=== PATIENT | female | born 1935 | race Caucasian/White ===

== ENCOUNTER 2016-09-20 11:32 | Inpatient (IN) | payer MEDICARE, OTHER ==
[~2016-09-20] VITALS: Ht 154.9 cm; Wt 57.2 kg
[2016-09-20] MEDS ORDERED: SIMV10TA6 PO (11:58)
[2016-09-20] MEDS ORDERED: TAMS0.4C34 PO (11:58)
[2016-09-20] MEDS ORDERED: TRIA1CAP6 PO (11:59)
[2016-09-20] MEDS ORDERED: ESCI10TA PO (11:59)
[2016-09-20] MEDS ORDERED: PROCHLORPERAZINE EDISYLATE 10 MG/2 ML VIAL IV ONE (12:15)
[2016-09-20] MEDS ORDERED: PROCHLORPERAZINE EDISYLATE 10 MG/2 ML VIAL ONE (12:37)
--- NOTE | 2016-09-20 12:40 | NUR ---
PT IS IN ROOM #2A. DR MAURO EVALUATED THE PT.
[2016-09-20 12:42] LABS: BASOPHILS % (AUTO) 0.5 % (0.0-2.0); EOSINOPHILS % (AUTO) 0.7 % (0.0-7.0); HEMATOCRIT 39.5 % (37-47); HEMOGLOBIN 13.3 G/DL (12.0-16.0); LYMPHOCYTES # (AUTO) 1.7 K/UL (0.8-4.8); LYMPHOCYTES % (AUTO) 17.4 % (20.5-51.5); MEAN CORPUSCULAR HEMOGLOBIN 29.3 UUG (27.0-31.0); MEAN CORPUSCULAR HGB CONC 34 g/dL (32.0-37.0); MEAN CORPUSCULAR VOLUME 86.8 FL (81.0-99.0); MONOCYTES # (AUTO) 0.6 K/UL (0.1-1.30); NEUTROPHILS # (AUTO) 7.2 K/UL (1.8-8.9); NEUTROPHILS % (AUTO) 75.4 % (38.5-71.5); PLATELET COUNT (AUTO) 219 K/UL (150-450); RED BLOOD CELL COUNT(AUTO) 4.56 MIL/UL (4.2-5.4); WHITE BLOOD COUNT (AUTO) 9.6 K/UL (4.0-11.2)
[2016-09-20 12:43] LABS: EOSINOPHILS # (AUTO) 0.1 K/uL (0.0-0.7)
[2016-09-20 12:48] LABS: *BILIRUBIN,URIN NEGATIVE (NEGATIVE); *BLOOD, URINE Trace-intact (NEGATIVE); *CLARITY,URINE CLEAR (CLEAR); *COLOR,URINE YELLOW (YELLOW); *KETONES,URINE NEGATIVE (NEGATIVE); *PROTEIN,URINE NEGATIVE (NEGATIVE); *UROBILINOGEN,URINE 0.2 E.U./dl (NORMAL); LEUKOCYTE ESTERASE ,URINE TRACE (NEGATIVE); NITRITE, URINE NEGATIVE (NEGATIVE); PH,URINE 8.5 (5.0-8.0); UGLUCOSE NEGATIVE (NEGATIVE)
[2016-09-20 12:53] LABS: BACTERIA,URINE FEW /HPF (NONE SEEN); RBC,URINE 0-3 /HPF (0-3); SQUAMOUS EPITHELIAL CELL,UR FEW /HPF (NONE SEEN); WBC,URINE 0-3 /HPF (0-3)
[2016-09-20 12:59] LABS: ETHANOL < 3 MG/DL (0-0)
[2016-09-20 13:00] LABS: ALANINE AMINOTRANSFERASE 26 U/L (14-59); ALKALINE PHOSPHATASE 60 U/L (50-136); ASPARTATE AMINOTRANSFERASE 17 U/L (15-37); BILIRUBIN,DIRECT 0.1 mg/dL (0.0-0.2); BILIRUBIN,TOTAL 0.4 mg/dL (0.2-1.0); CARBON DIOXIDE 28 mmol/L (21-32); CHLORIDE 91 mmol/L (98-107); CREATININE 0.7 mg/dL (0.6-1.3); GLUCOSE 121 mg/dL (74-106); POTASSIUM 3.2 mmol/L (3.5-5.1); TOTAL PROTEIN, SERUM 7.5 g/dL (6.4-8.2); UREA NITROGEN, BLOOD 13 mg/dL (7-18)
[2016-09-20 13:04] LABS: ACETAMINOPHEN < 2.0 ug/mL (10-30)
[2016-09-20 13:11] LABS: THYROID STIMULATING HORMONE 0.725 mIU/mL (0.358-3.740)
[2016-09-20 13:12] LABS: *AMPHETAMINE, URINE NEGATIVE (NEGATIVE); *BARBITURATE, URINE NEGATIVE (NEGATIVE); *CANNABINOID, URINE NEGATIVE (NEGATIVE); *COCCAINE, URINE NEGATIVE (NEGATIVE); *OPIATE, URINE NEGATIVE (NEGATIVE); *PHENCYCLIDINE SCREEN,URINE NEGATIVE (NEGATIVE)
--- NOTE | 2016-09-20 14:36 | NUR ---
NAOMI AGUILERA PLCED PT ON VOLUNTARY HOLD, PT WANTED SALINE LOCK D/C'D WHICH WAS D/C'D INTACT. PT NOW AWAITING FOR BED AND TRANSFER.
[2016-09-20] MEDS ORDERED: LORAZEPAM 0.5 MG TABLET PO ONE (15:00)
[2016-09-20] MEDS ORDERED: LORAZEPAM 0.5 MG TABLET ONE (15:24)
--- NOTE | 2016-09-20 15:48 | NUR ---
REPORT WAS GIVEN TO RN MHU/MS. PT WAS TRANSFERED TO MHU/MS ROOM #208.
[2016-09-20 16:10] VITALS: BP 159/73
[2016-09-20] MEDS ORDERED: MAGNESIUM HYDROXIDE 30 ML LIQUID UDC PO PRN (17:00)
[2016-09-20] MEDS ORDERED: MAG HYDROX/AL HYDROX/SIMETH 30 ML LIQUID UDC PO PRN (17:00)
[2016-09-20] MEDS ORDERED: ACETAMINOPHEN 325 MG TABLET PO PRN (17:00)
--- NOTE | 2016-09-20 17:00 | NUR ---
PT WAS ADMITTED TO ROOM 208. 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 PT HAS 2 SONS WHO LIVE NEARBY PT STATES FEELING NAUSEATED FOR 1 YEAR AND DOES NOT KNOW WHY. PT STATES SHE HAS TAKEN EVERY MEDICATION KNOWN FOR NAUSEA BUT NOTHING HAS HELPED. PT ORIENTED TO ROOM, NO SIGNS OF ACUTE DISTRESS, CALL LIGHT IN REACH, WILL CONTINUE TO MONITOR
--- NOTE | 2016-09-20 19:10 | NUR ---
Bedside reporting with MUNA Owens. Received patient sound asleep during initial rounds with HOB elevated. Breathing even and unlabored. Safety mesaures and fall precaution maintained. Continue care as planned.
[2016-09-20 20:00] VITALS: BP 141/72
[2016-09-20] MEDS ORDERED: CLONIDINE HCL 0.1 MG TABLET PO PRN (20:30)
[2016-09-20] MEDS: SIMVASTATIN 10 MG TABLET PO SCH (20:56)
[2016-09-21 04:00] VITALS: BP 126/63
[2016-09-21] MEDS ORDERED: PEG15DRO2 OP (07:37)
[2016-09-21 07:56] VITALS: BP 126/63
[2016-09-21 08:01] VITALS: BP 138/64
--- NOTE | 2016-09-21 08:36 | NUR ---
PT AWAKE IN BED, IN NO ACUTE DISTRESS, TOLERATED BREAKFAST WELL. ALL SAFETY AND COMFORT MEASURES ATTENDED TO, CALL LIGHT IN REACH WILL CONTINUE TO MONITOR
[2016-09-21] MEDS ORDERED: ESCI10TA PO (08:42)
[2016-09-21] MEDS: TAMSULOSIN HCL 0.4 MG CAP.SR.24H PO SCH (09:00)
[2016-09-21] MEDS ORDERED: Medication Not On Formulary EA (Triamterene/Hydrochlorothiazid (Triamterene-Hctz 37.5-25 PO SCH (09:00)
[2016-09-21] MEDS: TRIAMTERENE/HCTZ 75-50 MG TABLET PO SCH (09:29)
--- NOTE | 2016-09-21 09:55 | NUR ---
PT REQUESTING TO TAKE FLOMAX AT NIGHT, CALLED PHARMACY TO CHANGE DUE TIME, SAID OKAY, WILL FOLLOW THROUGH
[2016-09-21] MEDS: PSYLLIUM SEED PACKET PO SCH (11:30)
[2016-09-21] MEDS ORDERED: MINERAL OIL/PETROLAT OPHT OINT 3.5 GM TUBE RIGHTEYE PRN (11:30)
[2016-09-21 11:31] LABS: *BILIRUBIN,URIN NEGATIVE (NEGATIVE); *BLOOD, URINE Trace-intact (NEGATIVE); *CLARITY,URINE CLEAR (CLEAR); *COLOR,URINE STRAW (YELLOW); *KETONES,URINE NEGATIVE (NEGATIVE); *PROTEIN,URINE NEGATIVE (NEGATIVE); *UROBILINOGEN,URINE 0.2 E.U./dl (NORMAL); LEUKOCYTE ESTERASE ,URINE NEGATIVE (NEGATIVE); NITRITE, URINE NEGATIVE (NEGATIVE); PH,URINE 7.5 (5.0-8.0); UGLUCOSE NEGATIVE (NEGATIVE)
[2016-09-21 11:44] LABS: BACTERIA,URINE FEW /HPF (NONE SEEN); RBC,URINE 0-3 /HPF (0-3); SQUAMOUS EPITHELIAL CELL,UR FEW /HPF (NONE SEEN); WBC,URINE 0-3 /HPF (0-3)
[2016-09-21] MEDS: DOCUSATE SODIUM 100 MG CAPSULE PO SCH (11:46)
[2016-09-21] MEDS: POLYVINYL ALCOHOL OPHT DROPS 15 ML BOTTLE EACHEYE PRN (11:53)
[2016-09-21] MEDS: ESCITALOPRAM OXALATE 10 MG TABLET PO SCH (14:26)
[2016-09-21 16:06] VITALS: BP 132/65
--- NOTE | 2016-09-21 16:39 | NUR ---
Initial discharge instructions: The patient resides at home [[address] [place] [address]; ] independently however her son Bradley has been living with her more recently. The patient stated that she will be returning home upon discharge. SW will speak with the patient, family, and MD regarding most appropriate discharge plan. SS will form a safe and proper discharge.
--- NOTE | 2016-09-21 18:27 | NUR ---
PATIENT SITTING IN CHAIR, LOOKING OUT WINDOW. NO CHANGES NOTED THROUGHOUT SHIFT, ALL SAFETY AND COMFORT MEASURES MAINTAINED THROUGHOUT SHIFT, CALL LIGHT IN REACH
[2016-09-21] MEDS: SIMVASTATIN 10 MG TABLET PO SCH (21:13)
[2016-09-22 05:00] VITALS: BP 143/59
[2016-09-22] MEDS ORDERED: ONDANSETRON ODT 4 MG TAB.RAPDIS SL ONE (05:00)
--- NOTE | 2016-09-22 05:00 | NUR ---
CALLED MD COUNTRY SALES MANAGER TO NOTIFY PT C/O NAUSEA AND REGARDING ABNORMAL POTASSIUM AND SODIUM LEVEL RESULTS ON 09/20/16 12:35PM. VERBAL ORDERS FROM STORMY LAUREN TAKEN AND CARRIED OUT. PROVIDED ICE CHIPS AND SODA CRACKERS TO PT. PT IS IN NO DISTRESS. WILL CONTINUE TO MONITOR.
[2016-09-22] MEDS ORDERED: ONDANSETRON ODT 4 MG TAB.RAPDIS ONE (05:17)
--- NOTE | 2016-09-22 06:17 | NUR ---
PT SLEPT INTERMITTENTLY, IN NO ACUTE DISTRESS. PT IS COOPERATIVE. FREQUENT VISUAL CHECKS DONE, CALL LIGHT WITHIN REACH, BED ALARM ON. WILL CONTINUE TO MONITOR.
[2016-09-22 06:43] LABS: BASOPHILS % (AUTO) 0.5 % (0.0-2.0); EOSINOPHILS # (AUTO) 0.2 K/uL (0.0-0.7); EOSINOPHILS % (AUTO) 3.5 % (0.0-7.0); HEMOGLOBIN 12.8 G/DL (12.0-16.0); LYMPHOCYTES # (AUTO) 2.3 K/UL (0.8-4.8); MEAN CORPUSCULAR HEMOGLOBIN 29.1 UUG (27.0-31.0); MEAN CORPUSCULAR HGB CONC 34 g/dL (32.0-37.0); MEAN CORPUSCULAR VOLUME 86.4 FL (81.0-99.0); MONOCYTES # (AUTO) 0.7 K/UL (0.1-1.30); MONOCYTES % (AUTO) 10.8 % (0.0-11.0); NEUTROPHILS # (AUTO) 3.1 K/UL (1.8-8.9); NEUTROPHILS % (AUTO) 49.2 % (38.5-71.5); PLATELET COUNT (AUTO) 216 K/UL (150-450); WHITE BLOOD COUNT (AUTO) 6.3 K/UL (4.0-11.2)
[2016-09-22 07:52] LABS: ALANINE AMINOTRANSFERASE 22 U/L (14-59); ALKALINE PHOSPHATASE 52 U/L (50-136); ASPARTATE AMINOTRANSFERASE 18 U/L (15-37); BILIRUBIN,TOTAL 0.5 mg/dL (0.2-1.0); CARBON DIOXIDE 29 mmol/L (21-32); CHLORIDE 93 mmol/L (98-107); CHOLESTEROL 195 mg/dL (<200); CREATININE 0.7 mg/dL (0.6-1.3); GLUCOSE 95 mg/dL (74-106); HDL CHOLESTEROL 98 mg/dL (40-60); MAGNESIUM 2.1 mg/dL (1.8-2.4); PHOSPHOROUS 3.1 mg/dL (2.5-4.9); TOTAL PROTEIN, SERUM 6.7 g/dL (6.4-8.2); TRIGLYCERIDES 34 MG/DL (30-150); UREA NITROGEN, BLOOD 14 mg/dL (7-18)
[2016-09-22] MEDS: ESCITALOPRAM OXALATE 10 MG TABLET PO SCH (08:28)
[2016-09-22] MEDS: CLONAZEPAM 0.5 MG TABLET PO PRN (08:28)
[2016-09-22] MEDS: PSYLLIUM SEED PACKET PO SCH (08:28)
[2016-09-22] MEDS: TRIAMTERENE/HCTZ 75-50 MG TABLET PO SCH (08:28)
[2016-09-22] MEDS: DOCUSATE SODIUM 100 MG CAPSULE PO SCH (08:28)
[2016-09-22] MEDS: TAMSULOSIN HCL 0.4 MG CAP.SR.24H PO SCH (08:28)
[2016-09-22] MEDS: POLYVINYL ALCOHOL OPHT DROPS 15 ML BOTTLE EACHEYE PRN (08:29)
[2016-09-22] MEDS ORDERED: POTASSIUM CHLORIDE 20 MEQ TAB.PRT.SR PO ONE (10:00)
[2016-09-22 11:10] VITALS: BP 137/64
[2016-09-22] MEDS: FAMOTIDINE 20 MG TABLET PO SCH (12:00)
--- NOTE | 2016-09-22 13:24 | NUR ---
Called MD Ca's office for psych ff up. Aviva BRAID CUTTER informed pt wants to change full liquid BRAID CUTTER advised not to change her diet instead put a diet consult.
[2016-09-22 15:07] VITALS: BP 141/63
[2016-09-22 20:00] VITALS: BP 136/65
[2016-09-22] MEDS: ONDANSETRON HCL 4 MG TABLET PO PRN (21:27)
[2016-09-22] MEDS: SIMVASTATIN 10 MG TABLET PO SCH (21:27)
[2016-09-22] MEDS: TEMAZEPAM 7.5 MG CAPSULE PO PRN (23:41)
[2016-09-23 06:27] VITALS: BP 134/61
--- NOTE | 2016-09-23 06:30 | NUR ---
PATIENT SLEPT WELL, IN NO ACUTE DISTRESS. NO SIGNIFICANT CHANGE OF CONDITION THROUGHOUT THE SHIFT. CALL LIGHT WITHIN REACH, BED ALARM ON. WILL CONTINUE TO MONITOR.
[2016-09-23 07:17] LABS: CARBON DIOXIDE 30 mmol/L (21-32); CHLORIDE 89 mmol/L (98-107); CREATININE 0.7 mg/dL (0.6-1.3); GLUCOSE 107 mg/dL (74-106); POTASSIUM 3.5 mmol/L (3.5-5.1); UREA NITROGEN, BLOOD 11 mg/dL (7-18)
[2016-09-23] MEDS: TAMSULOSIN HCL 0.4 MG CAP.SR.24H PO SCH (08:31)
[2016-09-23] MEDS: ESCITALOPRAM OXALATE 10 MG TABLET PO SCH (08:31)
[2016-09-23] MEDS: FAMOTIDINE 20 MG TABLET PO SCH (08:32)
[2016-09-23] MEDS: DOCUSATE SODIUM 100 MG CAPSULE PO SCH (08:32)
[2016-09-23] MEDS: PSYLLIUM SEED PACKET PO SCH (08:32)
[2016-09-23] MEDS: TRIAMTERENE/HCTZ 75-50 MG TABLET PO SCH (08:32)
[2016-09-23] MEDS: POLYVINYL ALCOHOL OPHT DROPS 15 ML BOTTLE EACHEYE PRN (08:33)
--- NOTE | 2016-09-23 08:48 | NUR ---
PT AMBULATING HALLWAY AT THIS TIME WITH STUDENT NURSES, TOLERATED FULL LIQUID DIET WELL, DENIES NAUSEA AT THIS TIME. ALL DUE MEDICATIONS GIVEN. WILL CONTINUE TO MONITOR.
[2016-09-23 11:01] VITALS: BP 126/62
[2016-09-23] MEDS: ONDANSETRON HCL 4 MG TABLET PO PRN (12:16)
[2016-09-23 15:06] VITALS: BP 126/60
[2016-09-23] MEDS: LEVOFLOXACIN 500 MG TABLET PO SCH (15:19)
[2016-09-23 17:02] LABS: *CREATININE,URINE 18.4 mg/dL (30-125)
--- NOTE | 2016-09-23 18:20 | NUR ---
PT AWAKE SITTING IN CHAIR, NO CHANGES THROUGHOUT SHIFT, ALL SAFETY AND COMFORT MEASURES MAINTAINED THROUGHOUT SHIFT, CALL LIGHT IN REACH
--- NOTE | 2016-09-23 20:00 | NUR ---
PATIENT AWAKE,ALERT, DEPRESSED,ANXIOUS,COOPERATIVE,DENIES SUICIDAL IDEATION,COMPLIANT WITH MEDICATIONS AND CARE,STILL CONTINUE C/O CHRONIC NAUSEA AND POOR APPETITE, WANTS TO STAY ON FULL LIQUID DIET,AWARE OF FLUID RESTRICTION AND COOPERATIVE,ABLE TO AMBULATE ON HER OWN,STEADY GAIT.ALL NEEDS ATTENDED.
[2016-09-23 20:03] VITALS: BP 138/59
[2016-09-23] MEDS: PROCHLORPERAZINE MALEATE 10 MG TABLET PO PRN (20:33)
[2016-09-23] MEDS: SIMVASTATIN 10 MG TABLET PO SCH (20:33)
--- NOTE | 2016-09-24 04:57 | NUR ---
PATIENT SLEEP WELL 6-7 HRS/NITE , NO ACUTE CHANGE IN CONDITION,CLOSELY MONITOR.
[2016-09-24 05:11] VITALS: BP 132/55
[2016-09-24 05:53] LABS: BASOPHILS % (AUTO) 0.7 % (0.0-2.0); EOSINOPHILS # (AUTO) 0.2 K/uL (0.0-0.7); EOSINOPHILS % (AUTO) 2.8 % (0.0-7.0); HEMATOCRIT 38.1 % (37-47); LYMPHOCYTES # (AUTO) 2.1 K/UL (0.8-4.8); LYMPHOCYTES % (AUTO) 35.4 % (20.5-51.5); MEAN CORPUSCULAR HEMOGLOBIN 29.2 UUG (27.0-31.0); MEAN CORPUSCULAR HGB CONC 34 g/dL (32.0-37.0); MEAN CORPUSCULAR VOLUME 85.9 FL (81.0-99.0); MONOCYTES # (AUTO) 0.7 K/UL (0.1-1.30); MONOCYTES % (AUTO) 11.1 % (0.0-11.0); NEUTROPHILS # (AUTO) 3.1 K/UL (1.8-8.9); PLATELET COUNT (AUTO) 205 K/UL (150-450); RED BLOOD CELL COUNT(AUTO) 4.44 MIL/UL (4.2-5.4); WHITE BLOOD COUNT (AUTO) 6.1 K/UL (4.0-11.2)
[2016-09-24 06:07] LABS: ALANINE AMINOTRANSFERASE 24 U/L (14-59); ALKALINE PHOSPHATASE 56 U/L (50-136); ASPARTATE AMINOTRANSFERASE 15 U/L (15-37); BILIRUBIN,TOTAL 0.3 mg/dL (0.2-1.0); CARBON DIOXIDE 34 mmol/L (21-32); CHLORIDE 88 mmol/L (98-107); CREATININE 0.7 mg/dL (0.6-1.3); GLUCOSE 98 mg/dL (74-106); PHOSPHOROUS 2.9 mg/dL (2.5-4.9); POTASSIUM 3.4 mmol/L (3.5-5.1); TOTAL PROTEIN, SERUM 6.6 g/dL (6.4-8.2); UREA NITROGEN, BLOOD 10 mg/dL (7-18)
[2016-09-24] MEDS: PROCHLORPERAZINE MALEATE 10 MG TABLET PO PRN ×2 (06:53→21:35)
[2016-09-24] MEDS: PSYLLIUM SEED PACKET PO SCH (08:37)
[2016-09-24] MEDS: FAMOTIDINE 20 MG TABLET PO SCH (08:38)
[2016-09-24] MEDS: DOCUSATE SODIUM 100 MG CAPSULE PO SCH (08:38)
[2016-09-24] MEDS: ESCITALOPRAM OXALATE 10 MG TABLET PO SCH (08:39)
[2016-09-24] MEDS: TRIAMTERENE/HCTZ 75-50 MG TABLET PO SCH (08:41)
[2016-09-24] MEDS: TAMSULOSIN HCL 0.4 MG CAP.SR.24H PO SCH (08:41)
[2016-09-24 11:48] VITALS: BP 145/60
[2016-09-24] MEDS ORDERED: POTASSIUM CHLORIDE 20 MEQ TAB.PRT.SR PO ONE (14:30)
[2016-09-24] MEDS: LEVOFLOXACIN 500 MG TABLET PO SCH (14:31)
[2016-09-24 16:16] VITALS: BP 141/72
--- NOTE | 2016-09-24 19:00 | NUR ---
PT IS LAYING IN BED COMFORTABLY. NO S/S OF RESPIRATORY DISTRESS NOTED. ALL SAFETY NEEDS ARE MET. NO PAIN NOTED.
[2016-09-24 19:50] VITALS: BP 136/61
[2016-09-24] MEDS: SIMVASTATIN 10 MG TABLET PO SCH (21:35)
[2016-09-25] MEDS: TEMAZEPAM 7.5 MG CAPSULE PO PRN ×2 (00:24→23:59)
[2016-09-25 05:00] VITALS: BP 129/61
--- NOTE | 2016-09-25 06:13 | NUR ---
SLEPT MOST OF THE NITE.NO BOWEL MOVEMENT YET.WARM PRUNE OFFERED.ON 800CC FLUID RESTRITION.
[2016-09-25 06:33] LABS: BASOPHILS % (AUTO) 0.6 % (0.0-2.0); EOSINOPHILS # (AUTO) 0.2 K/uL (0.0-0.7); EOSINOPHILS % (AUTO) 2.7 % (0.0-7.0); HEMOGLOBIN 13.3 G/DL (12.0-16.0); LYMPHOCYTES # (AUTO) 2.8 K/UL (0.8-4.8); LYMPHOCYTES % (AUTO) 42.6 % (20.5-51.5); MEAN CORPUSCULAR HEMOGLOBIN 29.1 UUG (27.0-31.0); MEAN CORPUSCULAR HGB CONC 34 g/dL (32.0-37.0); MEAN CORPUSCULAR VOLUME 85.7 FL (81.0-99.0); MONOCYTES # (AUTO) 0.8 K/UL (0.1-1.30); MONOCYTES % (AUTO) 12.6 % (0.0-11.0); NEUTROPHILS # (AUTO) 2.7 K/UL (1.8-8.9); NEUTROPHILS % (AUTO) 41.5 % (38.5-71.5); PLATELET COUNT (AUTO) 202 K/UL (150-450); RED BLOOD CELL COUNT(AUTO) 4.55 MIL/UL (4.2-5.4); WHITE BLOOD COUNT (AUTO) 6.5 K/UL (4.0-11.2)
[2016-09-25 06:41] LABS: ALANINE AMINOTRANSFERASE 23 U/L (14-59); ALKALINE PHOSPHATASE 54 U/L (50-136); ASPARTATE AMINOTRANSFERASE 15 U/L (15-37); BILIRUBIN,TOTAL 0.3 mg/dL (0.2-1.0); CARBON DIOXIDE 33 mmol/L (21-32); CHLORIDE 90 mmol/L (98-107); CREATININE 0.7 mg/dL (0.6-1.3); GLUCOSE 94 mg/dL (74-106); MAGNESIUM 2.3 mg/dL (1.8-2.4); POTASSIUM 3.8 mmol/L (3.5-5.1); TOTAL PROTEIN, SERUM 6.6 g/dL (6.4-8.2); UREA NITROGEN, BLOOD 13 mg/dL (7-18)
[2016-09-25] MEDS: DOCUSATE SODIUM 100 MG CAPSULE PO SCH (08:15)
[2016-09-25] MEDS: ESCITALOPRAM OXALATE 10 MG TABLET PO SCH (08:15)
[2016-09-25] MEDS: TRIAMTERENE/HCTZ 75-50 MG TABLET PO SCH (08:15)
[2016-09-25] MEDS: FAMOTIDINE 20 MG TABLET PO SCH (08:16)
[2016-09-25] MEDS: TAMSULOSIN HCL 0.4 MG CAP.SR.24H PO SCH (08:18)
[2016-09-25] MEDS: PSYLLIUM SEED PACKET PO SCH (08:18)
[2016-09-25] MEDS: POLYVINYL ALCOHOL OPHT DROPS 15 ML BOTTLE EACHEYE PRN (09:25)
[2016-09-25] MEDS: PROCHLORPERAZINE MALEATE 10 MG TABLET PO PRN ×2 (09:30→20:08)
--- NOTE | 2016-09-25 09:31 | NUR ---
PATIENT STATED HAS NAUSEA AFTER EATING HER BREAKFAST BUT NO VOMITING NOTED MEDICATED AT THIS TIME WITH COMPAZINE ORDERED AND WILL OBSERVE.
--- NOTE | 2016-09-25 10:47 | NUR ---
PATIENT SEEN AND EXAMINED BY DR BARBOSA WITH NO NEW ORDERS AT THIS TIME.
[2016-09-25 12:15] VITALS: BP 118/57
[2016-09-25] MEDS: LEVOFLOXACIN 500 MG TABLET PO SCH (14:55)
[2016-09-25 16:57] VITALS: BP 120/58
--- NOTE | 2016-09-25 18:00 | NUR ---
RESTING IN ROOM WITH HER FRIEND AT THE BEDSIDE WITH NO COMPLAINTS AT THIS TIME
--- NOTE | 2016-09-25 20:00 | NUR ---
nsg: pt received in bed, a/o x 4. denies discomfort. pleasant, no hallucinations and delusions noted. thought process intact. cont to monitor.
[2016-09-25] MEDS: SIMVASTATIN 10 MG TABLET PO SCH (20:08)
--- NOTE | 2016-09-25 23:00 | NUR ---
nsg: pt not experiencing nausea, however, pt is fixated with her medication, compazine, as to how much she took on each day. pt denies nausea at this time.
[2016-09-26] MEDS: CLONAZEPAM 0.5 MG TABLET PO PRN (05:10)
[2016-09-26 05:16] VITALS: BP 123/50
--- NOTE | 2016-09-26 05:26 | NUR ---
nsg: pt only slept for 2 hrs, sleeping pill given. v/s stable. pt c/o anxiety, medicated with klonopin.
[2016-09-26] MEDS: TAMSULOSIN HCL 0.4 MG CAP.SR.24H PO SCH (08:29)
[2016-09-26] MEDS: ESCITALOPRAM OXALATE 10 MG TABLET PO SCH (08:54)
[2016-09-26] MEDS: TRIAMTERENE/HCTZ 75-50 MG TABLET PO SCH (08:54)
[2016-09-26] MEDS: DOCUSATE SODIUM 100 MG CAPSULE PO SCH (08:54)
[2016-09-26] MEDS: PSYLLIUM SEED PACKET PO SCH (08:54)
[2016-09-26] MEDS: FAMOTIDINE 20 MG TABLET PO SCH (08:54)
--- NOTE | 2016-09-26 09:44 | NUR ---
PT IS LAYING IN BED COMFORTABLY. NO S.S OF RESPIRATORY DISTRESS NOTED. MO PAIN NOTED. ALL SAFETY NEEDS ARE MET. WILL CONTINUE TO MONITOR.
[2016-09-26 11:38] VITALS: BP 109/52
[2016-09-26] MEDS: LEVOFLOXACIN 500 MG TABLET PO SCH (14:37)
[2016-09-26 16:10] VITALS: BP 108/61
--- NOTE | 2016-09-26 17:55 | NUR ---
PT IS CONSTANTLY REMINDED NOT TO EXCEED 800 ML OF FLUID RESTRICTION, PER PT "TEA AND COFFEE IS NOT WATER (THEREFORE) THE RESTRICTION IS ONLY FOR WATER" EDUCATION IS PROVIDED TO THE PT. OK PER PT.
--- NOTE | 2016-09-26 17:58 | NUR ---
PT IS ABLE TO AMBULATE IN HALLWAY, PT IS STEADY. REMINDED OF ALL SAFETY AND PREVENTATIVE FALL MEASURES.
--- NOTE | 2016-09-26 19:33 | NUR ---
NO CHANGES NOTED. ALL SAFETY NEEDS ARE MET.
--- NOTE | 2016-09-26 19:45 | NUR ---
pt received sitting up in bed, no acute distress noted. Pt reported she was not seen by Psych MD, will notify on coming staff and MD in am. Pt able to make needs known. No acute distress noted. Bed in low and locked position. Will continue to monitor for safety.
[2016-09-26 20:00] VITALS: BP 126/57
[2016-09-26] MEDS: SIMVASTATIN 10 MG TABLET PO SCH (21:00)
[2016-09-26] MEDS: TEMAZEPAM 7.5 MG CAPSULE PO PRN (23:29)
[2016-09-27 04:15] VITALS: BP 119/62
--- NOTE | 2016-09-27 06:30 | NUR ---
PT AWAKE INTERMITTENTLY THROUGH OUT THE NIGHT. OBSERVED CRYING STATING "I DON'T BELONG HERE". PT C/O PRESSURE TO ABDOMEN, ALTHOUGH VITAL SIGNS WNL. DENIES ANY PAIN. WILL ENDORSE PT STATUS TO MD AND ON COMING STAFF. COMFORT MEASURES PROVIDED.
--- NOTE | 2016-09-27 07:00 | NUR ---
PT IS LAYING IN BED COMFORTABLY. PT HAD BM PASTY IN CONSISTENCY, BROWN IN COLOR, MODERATE AMOUNT. NO S/S OF RESPIRATORY DISTRESS NOTED. NO PAIN NOTED. NO NAUSEA. PT ASKED IF SHE CAN HAVE "MORE SOLID" FOOD, PER EMELY HOT MILL SUPERVISOR OK TO ADVANCE TO CARDIAC. ADVISED STORMY STACK ON THE CONSISTENCY OF STOOL, HELD COLACE. NO S/S OF RESPIRATORY DISTRESS NOTED. ALL SAFETY NEEDS ARE MET. WILL CONTINUE TO MONITOR. PT ADVISED THAT SHE WOULD LIKE TO SEE THE DOCTOR FOR MEDICAL AND PSYCH ISSUES. ADVISED STORMY STACK.
[2016-09-27 07:54] LABS: CARBON DIOXIDE 33 mmol/L (21-32); CHLORIDE 88 mmol/L (98-107); CREATININE 0.8 mg/dL (0.6-1.3); GLUCOSE 110 mg/dL (74-106); POTASSIUM 3.5 mmol/L (3.5-5.1); UREA NITROGEN, BLOOD 16 mg/dL (7-18)
[2016-09-27] MEDS: TAMSULOSIN HCL 0.4 MG CAP.SR.24H PO SCH (08:29)
[2016-09-27] MEDS: ESCITALOPRAM OXALATE 10 MG TABLET PO SCH (08:52)
[2016-09-27] MEDS: FAMOTIDINE 20 MG TABLET PO SCH (08:52)
[2016-09-27] MEDS: PSYLLIUM SEED PACKET PO SCH (08:52)
[2016-09-27] MEDS: DOCUSATE SODIUM 100 MG CAPSULE PO SCH (08:52)
--- NOTE | 2016-09-27 09:56 | NUR ---
PER STORMY STACK "ADVANCE DIET TOLERATED TO CARDIAC DIET"
[2016-09-27 11:38] VITALS: BP 132/61
[2016-09-27] MEDS: LEVOFLOXACIN 500 MG TABLET PO SCH (14:55)
[2016-09-27 15:38] LABS: *OCCULT BLOOD STOOL NEGATIVE (NEGATIVE)
[2016-09-27 15:44] VITALS: BP 121/60
--- NOTE | 2016-09-27 18:56 | NUR ---
PT IS SITTING IN BED COMFORTABLY. NO CHANGES NOTED. NO NAUSEA NOTED. PT REFUSED TO HAVE ANTI-ANXIETY MEDICATIONS. ALL SAFETY NEEDS ARE MET. NO SUICIDAL IDEATION REPORTED.
[2016-09-27 19:00] VITALS: BP 137/69
--- NOTE | 2016-09-27 19:35 | NUR ---
PT IS SITTING IN BED, RESTING COMFORTABLY. RESP IS EVEN AND UNLABORED, NO SOB NOTED. NO ACUTE DISTRESS. NO SUICIDAL IDEATION NOTED AT THIS TIME. WILL CONT TO MONITOR.
[2016-09-27] MEDS: SIMVASTATIN 10 MG TABLET PO SCH (20:34)
[2016-09-27] MEDS: TEMAZEPAM 7.5 MG CAPSULE PO PRN (22:31)
[2016-09-28 04:00] VITALS: BP 137/69
--- NOTE | 2016-09-28 06:25 | NUR ---
PT IS SITTING IN BED, RESTING COMFORTABLY. RESP IS EVEN AND UNLABORED, NO SOB NOTED. NO ACUTE DISTRESS. PT SLEPT FOR ABOUT 5 HOURS. NO SUICIDAL IDEATION NOTED AT THIS TIME. WILL CONT TO MONITOR.
[2016-09-28 07:17] LABS: BASOPHILS % (AUTO) 0.5 % (0.0-2.0); EOSINOPHILS # (AUTO) 0.2 K/uL (0.0-0.7); EOSINOPHILS % (AUTO) 2.5 % (0.0-7.0); HEMATOCRIT 37.3 % (37-47); HEMOGLOBIN 12.7 G/DL (12.0-16.0); LYMPHOCYTES # (AUTO) 2.9 K/UL (0.8-4.8); LYMPHOCYTES % (AUTO) 37.9 % (20.5-51.5); MEAN CORPUSCULAR HEMOGLOBIN 29.3 UUG (27.0-31.0); MEAN CORPUSCULAR HGB CONC 34 g/dL (32.0-37.0); MEAN CORPUSCULAR VOLUME 85.8 FL (81.0-99.0); MONOCYTES # (AUTO) 0.8 K/UL (0.1-1.30); MONOCYTES % (AUTO) 10.5 % (0.0-11.0); NEUTROPHILS # (AUTO) 3.8 K/UL (1.8-8.9); NEUTROPHILS % (AUTO) 48.6 % (38.5-71.5); PLATELET COUNT (AUTO) 220 K/UL (150-450); RED BLOOD CELL COUNT(AUTO) 4.35 MIL/UL (4.2-5.4); WHITE BLOOD COUNT (AUTO) 7.7 K/UL (4.0-11.2)
--- NOTE | 2016-09-28 07:30 | NUR ---
RECEIVED REPORT FROM DOUGH MIXING MACHINE OPERATOR, PATIENT IN BED, SLEEPING, NO EVIDENCE OF DISTRESS NOTED, SIDE RAILS UP X2, BED IN LOW POSITION.
[2016-09-28 07:40] LABS: ALANINE AMINOTRANSFERASE 23 U/L (14-59); ALKALINE PHOSPHATASE 55 U/L (50-136); ASPARTATE AMINOTRANSFERASE 15 U/L (15-37); BILIRUBIN,TOTAL 0.5 mg/dL (0.2-1.0); CARBON DIOXIDE 33 mmol/L (21-32); CHLORIDE 89 mmol/L (98-107); CREATININE 0.7 mg/dL (0.6-1.3); GLUCOSE 94 mg/dL (74-106); PHOSPHOROUS 3.5 mg/dL (2.5-4.9); POTASSIUM 3.6 mmol/L (3.5-5.1); TOTAL PROTEIN, SERUM 6.7 g/dL (6.4-8.2); UREA NITROGEN, BLOOD 14 mg/dL (7-18)
[2016-09-28] MEDS: DOCUSATE SODIUM 100 MG CAPSULE PO SCH (08:44)
[2016-09-28] MEDS: PROCHLORPERAZINE MALEATE 10 MG TABLET PO PRN (08:45)
[2016-09-28] MEDS: FAMOTIDINE 20 MG TABLET PO SCH (08:45)
[2016-09-28] MEDS: ESCITALOPRAM OXALATE 10 MG TABLET PO SCH (08:45)
[2016-09-28] MEDS: PSYLLIUM SEED PACKET PO SCH (08:45)
[2016-09-28 11:01] VITALS: BP 133/63
--- NOTE | 2016-09-28 12:00 | NUR ---
PATIENT IS VERY ANXIOUS AND CONTINUES TO ASK FOR THINGS AND THEN 2 MINUTES LATER ASKS IF THEY HAVE BEEN DONE. PATIENT WALKS THE RAMÍREZ FREQUENTLY AND EXPRESSES FEELINGS OF SORROW AND DISTRESS ABOUT HER LOST LOVE ONES.
[2016-09-28] MEDS: LEVOFLOXACIN 500 MG TABLET PO SCH (14:34)
[2016-09-28 15:01] VITALS: BP 118/58
[2016-09-28] MEDS ORDERED: BISACODYL 10 MG SUPP.RECT RC PRN (15:15)
--- NOTE | 2016-09-28 19:08 | NUR ---
PATIENT IS AT HER BEDSIDE IN CHAIR, NO EVIDENCE OF DISTRESS NOTED, PATIENT DID NOT EAT EVENING MEAL, AND ENJOYED SPEAKING TO THE PSYCHOLOGIST TODAY, IS ANTICIPATING A CONVERSATION TOMORROW WITH HER.
--- NOTE | 2016-09-28 19:30 | NUR ---
PATIENT LAYING IN BED, WATCHING TV. RESP IS EVEN AND UNLABORED, NO SOB. NO ACUTE DISTRESS. NO DELUSIONS, HALLUCINATIONS OR SUICIDAL IDEALIZATIONS NOTED. WILL CONT TO MONITOR.
[2016-09-28] MEDS: SIMVASTATIN 10 MG TABLET PO SCH (20:31)
[2016-09-28 20:46] VITALS: BP 121/52
[2016-09-28] MEDS ORDERED: TAMSULOSIN HCL 0.4 MG CAP.SR.24H PO SCH (21:00)
[2016-09-28] MEDS: TEMAZEPAM 7.5 MG CAPSULE PO PRN (22:03)
[2016-09-29 04:00] VITALS: BP 126/55
--- NOTE | 2016-09-29 06:57 | NUR ---
PATIENT LAYING IN BED, WATCHING TV. RESP IS EVEN AND UNLABORED, NO SOB. NO ACUTE DISTRESS. NO DELUSIONS, HALLUCINATIONS OR SUICIDAL IDEALIZATIONS NOTED. PT SLEPT INTERMITTENTLY FOR APPROXIMATELY 3 HOURS. WILL CONT TO MONITOR.
--- NOTE | 2016-09-29 07:30 | NUR ---
RECEIVED REPORT FROM NUMERICAL CONTROL ROUTER OPERATOR, PATIENT IN BED SLEEPING, NO EVIDENCE OF DISTRESS NOTED, BED IN LOW POSITION, BED ALARM SET, SIDE RAILS UP X2.
[2016-09-29] MEDS: PSYLLIUM SEED PACKET PO SCH (08:28)
[2016-09-29] MEDS: DOCUSATE SODIUM 100 MG CAPSULE PO SCH (08:28)
[2016-09-29] MEDS: FAMOTIDINE 20 MG TABLET PO SCH (08:29)
[2016-09-29] MEDS: POLYVINYL ALCOHOL OPHT DROPS 15 ML BOTTLE EACHEYE PRN (08:30)
[2016-09-29] MEDS ORDERED: ESCITALOPRAM OXALATE 10 MG TABLET PO SCH (09:00)
[2016-09-29 10:30] VITALS: BP 131/63
--- NOTE | 2016-09-29 10:41 | NUR ---
DC Note: The patient will be discharged today back home to [[address] [place] [address]; ] where she lives with her son Bradley . SW spoke with the patient's son Wil who stated that he will pharmacy picking tech the patient today at 12:00 pm and take her home. The patient stated that she will follow-up with her lumber estimator Dr. Ricardo Stoner . The patient does not have a psychiatrist and may follow-up with Dr. Ash Diggs , Dr. Evelyn Alicea , or Dr. Mercedes Price . The patient may also follow-up with psychologist Dr. Adela Martinez . The patient may benefit from seeking services from [facility] [[address], [address] [place] [address] ]. The patient may also seek support services at [facility] [[address] [place] [id number] (Located in the [facility]); [phone]]. The patient and/or family may contact the crisis line 18/09 at .
[2016-09-29] MEDS: LEVOFLOXACIN 500 MG TABLET PO SCH (13:27)
--- NOTE | 2016-09-29 13:30 | NUR ---
Patient received all discharge paperwork and education, in addition to new and continued prescriptions. Patient was discharged to home with son Wil.
== END 2016-09-29 13:30 | disposition home or self-care (01) | DRG 885 ==
LOC: ER 11:44 → GPSOV 15:46
PROVIDERS: ADMIT Psychiatry & Neurology Psychiatry; ATTEND Internal Medicine
DX: F32.2 Major depressive disorder, single episode, severe without psychotic features (principal); N39.0 Urinary tract infection, site not specified; E87.1 Hypo-osmolality and hyponatremia; Z88.1 Allergy status to other antibiotic agents; Z88.8 Allergy status to other drugs, medicaments and biological substances; R11.0 Nausea; Z90.710 Acquired absence of both cervix and uterus; Z90.722 Acquired absence of ovaries, bilateral; R35.1 Nocturia; Z79.899 Other long term (current) drug therapy; E78.5 Hyperlipidemia, unspecified; H04.129 Dry eye syndrome of unspecified lacrimal gland; Z87.01 Personal history of pneumonia (recurrent); R90.82 White matter disease, unspecified; I69.898 Other sequelae of other cerebrovascular disease; F13.90 Sedative, hypnotic, or anxiolytic use, unspecified, uncomplicated; E87.6 Hypokalemia; K59.09 Other constipation; F41.9 Anxiety disorder, unspecified; T50.2X5A Adverse effect of carbonic-anhydrase inhibitors, benzothiadiazides and other diuretics, initial encounter; Y92.89 Other specified places as the place of occurrence of the external cause; I10 Essential (primary) hypertension
CPT/HCPCS: 36415; 70450; 80307; 83690; 83735; 84100; 84300; 84443; 85025; 85730; 87086; 97161; A4663; G0480; G0480-TC; J0780; Q0162; Q0164